=== PATIENT | male | born 1970 | race Caucasian/White ===

== ENCOUNTER 2018-02-05 08:23 | Day surgery (SDC) | payer OTHER ==
[2018-02-01 09:42] LABS: Basophils # (auto) 0.1 uL; Basophils % (auto) 0.7 % (0.0-2.0); Eosinophils # (auto) 0.1 uL; Eosinophils % (auto) 0.9 % (0.0-7.0); Hematocrit 42.9 % (41.0-53.0); Hemoglobin 14.8 g/dL (13.5-17.5); Lymphocytes # (auto) 2.2 uL; Lymphocytes % (auto) 29.2 % (10.0-50.0); Mean Corpuscular Hemoglobin 30.8 pg (28.0-32.0); Mean Corpuscular Hgb Conc. 34.5 g/dL (32.0-36.0); Mean Corpuscular Volume 89.4 fL (80.0-100.0); Monocytes # (auto) 0.5 uL; Monocytes % (auto) 7.5 % (0.0-12.0); Neutrophils # (auto) 4.6 uL; Neutrophils % (auto) 61.7 % (37.0-80.0); Nucleated Red Blood Cells % 0.1 %; Platelet Count (auto) 242 10^3/uL (140-450); Red Cell Distribution Width 13.5 % (11.8-14.3); White Blood Cell 7.4 10^3/uL (4.4-10.8)
[2018-02-01 10:11] LABS: INR 0.93 (0.9-1.15); Partial Thromboplastin Time 24.7 sec (23.78-33.04)
[~2018-02-05] VITALS: Ht 170.2 cm; Wt 90.7 kg
[~2018-02-05 08:23] MED LIST: CHOL50007 PO; GABA-339 PO; MULTTAB61 PO; NAP500T PO; OMEG100078 PO; SUMA50TA16 PO; TOPI50TA53 PO; TRAM50TA2 PO
[2018-02-05] MEDS: MIDAZOLAM HCL 5 MG/ML-1ML VIAL ONE ×2 (09:37→09:43)
[2018-02-05] MEDS: fentaNYL CITRATE 100 MCG/2 ML VL ONE ×2 (09:37→09:43)
[2018-02-05] MEDS ORDERED: SODIUM CHLORIDE LOCK 10 ML ONE (10:05)
[2018-02-05] MEDS ORDERED: diphenhdrAMINE HCL 50 MG/1 ML VL ONE (10:05)
[2018-02-05 10:33] VITALS: BP 122/79
== END 2018-02-05 10:37 | disposition home or self-care (01) ==
LOC: GI 08:23
PROVIDERS: ATTEND Internal Medicine Gastroenterology
DX: D12.5 Benign neoplasm of sigmoid colon (principal); K64.8 Other hemorrhoids; E66.9 Obesity, unspecified; M19.90 Unspecified osteoarthritis, unspecified site; M48.00 Spinal stenosis, site unspecified; Z68.31 Body mass index [BMI] 31.0-31.9, adult; Z90.49 Acquired absence of other specified parts of digestive tract; Z98.49 Cataract extraction status, unspecified eye; Z98.890 Other specified postprocedural states; Z79.899 Other long term (current) drug therapy; Z79.891 Long term (current) use of opiate analgesic
CPT/HCPCS: 36415; 45380; 85025; 85610; 85730; 88305; J1200; J2250; J3010; J7030; 99152

== ENCOUNTER 2019-01-23 09:55 | Day surgery (SDC) | payer OTHER ==
[2019-01-21 09:18] LABS: Basophils # (auto) 0 uL; Basophils % (auto) 0.4 % (0.0-2.0); Eosinophils # (auto) 0.1 uL; Eosinophils % (auto) 1.9 % (0.0-7.0); Hematocrit 43.5 % (41.0-53.0); Hemoglobin 14.9 g/dL (13.5-17.5); Lymphocytes # (auto) 2.2 uL; Lymphocytes % (auto) 29.3 % (10.0-50.0); Mean Corpuscular Hgb Conc. 34.2 g/dL (32.0-36.0); Mean Corpuscular Volume 90.6 fL (80.0-100.0); Monocytes # (auto) 0.5 uL; Monocytes % (auto) 6.2 % (0.0-12.0); Neutrophils # (auto) 4.6 uL; Neutrophils % (auto) 62.2 % (37.0-80.0); Nucleated Red Blood Cells % 0.1 %; Platelet Count (auto) 215 10^3/uL (140-450); Red Cell Distribution Width 13.8 % (11.8-14.3); White Blood Cell 7.4 10^3/uL (4.4-10.8)
[2019-01-21 09:32] LABS: Urine Bacteria NONE SEEN /hpf (None Seen); Urine Blood Negative /uL (Negative); Urine Mucus FEW (None Seen); Urine Specific Gravity 1.023 (1.001-1.035); Urine WBC 1 /hpf (0 - 3)
[2019-01-21 09:36] LABS: Calcium 8.9 mg/dL (8.5-10.1); Potassium 3.9 mmol/L (3.5-5.1)
[2019-01-21 09:41] LABS: Albumin 3.5 g/dL (3.4-5.0); BUN/Creatinine Ratio 10.6; Bilirubin, Total 0.5 mg/dL (0.2-1.0); Total Protein 7.4 g/dL (6.4-8.2)
[2019-01-21 10:14] LABS: INR 0.95 (0.9-1.15); Partial Thromboplastin Time 24.7 sec (23.64-32.05)
[~2019-01-23] VITALS: Ht 170.2 cm; Wt 90.7 kg
[~2019-01-23 09:55] MED LIST changes: +AMIT25TA9 PO; -TOPI50TA53 PO
[2019-01-23] MEDS ORDERED: ceFAZolin 1GM/50ML 50 ML IV ONE (11:01)
[2019-01-23] MEDS ORDERED: ROPIVACAINE 0.5% (5MG/ML) 20ML AMPULE IJ ONE (12:56)
[2019-01-23] MEDS ORDERED: diphenhdrAMINE HCL 50 MG/1 ML VL ONE (13:32)
[2019-01-23] MEDS ORDERED: GLYCOPYRROLATE 0.2 MG/ML 1ML VIAL ONE (13:32)
[2019-01-23] MEDS ORDERED: MIDAZOLAM HCL 1MG/1ML-2 ML VIAL ONE (13:32)
[2019-01-23] MEDS ORDERED: METOCLOPRAMIDE HCL 5MG/ml INJ 2ml VIAL ONE (13:32)
[2019-01-23] MEDS ORDERED: PROPOFOL 10 MG/ML 20 ML IV ONE (13:35)
[2019-01-23] MEDS ORDERED: LIDOCAINE 2% (LOCAL ANESTH.) PF 5ml SDV ONE (13:35)
[2019-01-23] MEDS ORDERED: fentaNYL CITRATE 100 MCG/2 ML VL ONE (13:37)
[2019-01-23] MEDS ORDERED: HYDROmorphone HCL 2 MG/ML VL IV PRN ×2 (14:00)
[2019-01-23] MEDS ORDERED: ONDANSETRON HCL 4 MG/2 ML VIAL IV ONE (14:00)
[2019-01-23] MEDS ORDERED: NALOXONE HCL 0.4 MG/ML VIAL IV PRN (14:00)
[2019-01-23 14:35] VITALS: BP 121/85
== END 2019-01-23 15:00 | disposition home or self-care (01) ==
LOC: SUR 09:55
PROVIDERS: ATTEND Podiatrist Foot & Ankle Surgery
DX: L03.031 Cellulitis of right toe (principal); L03.032 Cellulitis of left toe; B35.1 Tinea unguium; M89.9 Disorder of bone, unspecified; M25.775 Osteophyte, left foot; M25.774 Osteophyte, right foot; E66.9 Obesity, unspecified; G47.33 Obstructive sleep apnea (adult) (pediatric); G43.909 Migraine, unspecified, not intractable, without status migrainosus; G62.9 Polyneuropathy, unspecified; F32.9 Major depressive disorder, single episode, unspecified; F41.9 Anxiety disorder, unspecified; Z79.899 Other long term (current) drug therapy; Z90.49 Acquired absence of other specified parts of digestive tract; Z98.890 Other specified postprocedural states; Z68.32 Body mass index [BMI] 32.0-32.9, adult
CPT/HCPCS: 11750; 28124; 36415; 80053; 81001; 82962; 85025; 85610; 85730; 88304; 88311; J0690; J1200; J2001; J2250; J2704; J2765; J2795; J3010; L3260; Q4137